=== PATIENT | female | born 1985 | race Caucasian/White ===

== ENCOUNTER 2017-01-24 20:05 | Emergency (ER) | payer OTHER ==
[~2017-01-24 20:05] MED LIST: AMBIEN10 MG PO; ANAPROX DS550 M1 PO; BACTRIM DS TAB1 EAC2 PO; BIRTHCONTROL PO; BUSPAR15 MG PO; CAFFEINE PO; CEFTIN500 MG PO; CLINDAMYCIN HC150 MG PO; CLINDAMYCIN HC300 MG PO; COUGH MM; FLEXERIL10 MG PO; HYDROCODONE; IBUPROFEN; IBUPROFEN200 M3 PO; IBUPROFEN800 MG PO; LORTAB 7.5/5001 EA PO; NORCO 5/325 TAB1 TAB PO; NORCO 5/3251 TAB PO; PREDNISONE10 M1 PO; PRENATAL1 TAB; PROVENTIL HFA6.7 G1 IH; PYRIDIUM200 M2 PO; RELAFEN750 MG PO; SKELAXIN800 MG PO; TRINESSA1 TAB PO; TYLENOL; ZITHROMAX250 M1 PO; ZOLOFT100 MG PO; [UNRECOGNIZED DRUG - OTHER] PO
[2017-01-24] MEDS ORDERED: CEFDINIR300 M1 PO (21:04)
[2017-01-24] MEDS ORDERED: LEXAPRO10 M2 PO (21:05)
[2017-01-24] MEDS ORDERED: [UNRECOGNIZED DRUG - OTHER] (21:05)
[2017-01-24] MEDS ORDERED: AMBIEN10 M1 PO (21:05)
[2017-01-24] MEDS ORDERED: IBUPROFEN400 M1 PO (21:06)
[2017-01-24] MEDS ORDERED: TYLENOL325 M2 PO (21:06)
[2017-01-24] MEDS ORDERED: PREDNISONE20 M1 PO (21:24)
[2017-01-24] MEDS ORDERED: VENTOLIN HFA18 G2 PO (21:24)
[2017-03-05] MEDS ORDERED: CLEOCIN HCL300 M1 PO (07:55)
== END 2017-01-24 21:37 ==
LOC: EDMED 20:05
DX: J20.9 Acute bronchitis, unspecified (principal); B34.9 Viral infection, unspecified; F41.9 Anxiety disorder, unspecified; F32.9 Major depressive disorder, single episode, unspecified; Z87.891 Personal history of nicotine dependence; Z79.899 Other long term (current) drug therapy

== ENCOUNTER 2017-03-05 09:37 | Emergency (ER) | payer OTHER ==
[2017-03-05 08:45] LABS: BASO % 0.3 % (0-2); EOS % 1.6 % (0-7); EOSINOPHIL ABSOLUTE COUNT 0.2 tho/cmm (0.0-0.7); HCT-HEMATOCRIT 38.2 % (34.0-49.0); HGB-HEMOGLOBIN 13.2 gm/dl (12.0-15.5); IMMATURE GRANULOCYTES ABSOLUTE 0.04 tho/cmm (0-0.03); IMMATURE GRANULOCYTES PERCENT 0.3 % (0-0.3); LYMPH % 30.7 % (20-45); LYMPH ABSOLUTE COUNT 3.7 tho/cmm (0.8-4.5); MCH (MEAN CORPUSCULAR HGB) 30.6 pg (28.0-32.0); MCHC MEAN CORPUSCULAR HGB CONC 34.6 % (32.0-36.0); MCV (MEAN CELL VOLUME) 88.4 fl (82.0-96.0); MEAN PLATELET VOLUME 9.3 cmc (9.4-12.4); MONO % 6.5 % (0-12); MONOCYTE ABSOLUTE COUNT 0.8 tho/cmm (0.0-1.2); NEUTROPHIL ABSOLUTE COUNT 7.2 tho/cmm (1.6-8.0); NEUTROPHIL-AUTOMATED 7.2 tho/cmm (1.6-8.0); NEUTROPHILS % 60.6 % (40-80); PLATELET COUNT 355 tho/cmm (150-450); RED BLOOD COUNT 4.32 mil/cmm (4.00-5.20); RED CELL DISTRIBUTION WIDTH 12.6 % (12.4-16.4); WHITE BLOOD COUNT 11.9 tho/cmm (4.0-10.0)
[2017-03-05 09:01] LABS: ANION GAP 11 mmol/L (0-20); BLOOD UREA NITROGEN 12 mg/dl (6-24); CALCIUM 8.6 mg/dl (8.5-10.5); CARBON DIOXIDE-VENOUS 26 mmol/L (22-32); CHLORIDE 107 mmol/l (96-110); CREATININE 0.71 mg/dl (0.50-1.10); GLUCOSE 91 mg/dL (70-110); POTASSIUM 4.1 mmol/L (3.7-5.1); SODIUM 140 mmol/L (135-145); eGFR VALUE FOR BLACK >90 mL/Min
[2017-03-05 09:09] LABS: PREGNANCY-SERUM NEGATIVE (NEGATIVE)
[~2017-03-05 09:37] MED LIST changes: +AMBIEN10 M1 PO; +CEFDINIR300 M1 PO; +CLEOCIN HCL300 M1 PO; +IBUPROFEN400 M1 PO; +LEXAPRO10 M2 PO; +PREDNISONE20 M1 PO; +TYLENOL325 M2 PO; +VENTOLIN HFA18 G2 PO; +[UNRECOGNIZED DRUG - OTHER]
[2017-03-05] MEDS ORDERED: IBUPROFEN800 M1 PO (11:02)
[2017-03-05] MEDS ORDERED: PERCOCET 5-3251 EACH PO (11:02)
== END 2017-03-05 11:31 ==
LOC: EDMED 09:37
PROVIDERS: Emergency Medicine
DX: K04.7 Periapical abscess without sinus (principal); F32.9 Major depressive disorder, single episode, unspecified; Z87.891 Personal history of nicotine dependence
CPT/HCPCS: J1170; J2405; Q9967